=== PATIENT | female | born 1940 | race Caucasian/White ===

== ENCOUNTER 2017-08-20 07:31 | Emergency (ER) | payer MEDICARE ==
[2017-08-20 08:03] LABS: #Basophils 0.1 thou/uL (0.0-0.2); #Eosinphils 0.1 thou/uL (0.0-0.7); #Lymphocytes 2.3 thou/uL (1.20-3.40); #Monocytes 0.6 thou/uL (0.11-0.59); #Neutrophils 2.5 thou/uL (1.40-6.50); %Basophils 1.1 % (0.0-1.0); %Eosinophils 2.6 % (0.0-10.0); %Lymphocytes 41.1 % (21.0-51.0); %Monocytes 10.5 % (0.0-10.0); Hematocrit 37.3 % (36.0-47.0); Mean Platelet Volume 8.6 fL (7.4-10.4); Red Blood Cell (RBC) Count 4.03 mill/uL (4.20-5.40); White Blood Cell (WBC) Count 5.6 thou/uL (4.8-10.8)
--- NOTE | 2017-08-20 08:11 | RAD ---
CHEST ONE VIEW: History: Chest pain. Comparison: None. FINDINGS: Portable upright chest. Atherosclerosis of the aorta. Large cardiac silhouette. The pulmonary vessels and hilum are normal. C ostophrenic angles are clear. Lungs are hyperinflated. No mass, no consolidation. No pneumothorax or osseous abnormalities. IMPRESSION: 1. Atherosclerosis. 2. No acute cardiopulmonary process. POS: [facility]
[2017-08-20 08:29] LABS: ALT (SGPT) 15 U/L (8-55); AST (SGOT) 22 U/L (5-34); Alkaline Phosphatase 52 U/L (40-150); Anion Gap 12 mmol/L (10-20); BUN (Urea Nitrogen) 22 mg/dL (9.8-20.1); Bilirubin, Total 0.6 mg/dL (0.2-1.2); CK (CPK) 109 U/L (29-168); Calc. Creatinine Clearance 0 mL/min (70-130); Calcium 9.2 mg/dL (7.8-10.44); Carbon Dioxide 26 mmol/L (23-31); Chloride 105 mmol/L (98-107); Estimated GFR-MDRD 45; Globulin 2.9 g/dL (2.4-3.5); Lipase 47 U/L (8-78); Protein, Total 6.6 g/dL (6.0-8.3)
[2017-08-20] MEDS ORDERED: Ibuprofen 200 MG TAB ONE (09:24)
[2017-08-20 11:26] LABS: Troponin I 0.015 ng/mL (< 0.028)
== END 2017-08-20 12:12 | disposition home or self-care (01) ==
LOC: ERS 07:31
DX: R07.9 Chest pain, unspecified (principal); D64.9 Anemia, unspecified; E03.9 Hypothyroidism, unspecified; I48.91 Unspecified atrial fibrillation; M81.0 Age-related osteoporosis without current pathological fracture; N18.3 Chronic kidney disease, stage 3 (moderate); Z79.82 Long term (current) use of aspirin; Z79.899 Other long term (current) drug therapy
CPT/HCPCS: 36415; 71010; 80053; 82550; 82553; 83690; 83735; 84484; 85025; 93005; 94760

== ENCOUNTER 2017-11-07 09:38 | Inpatient (IN) | payer MEDICARE ==
[2017-11-07] MEDS ORDERED: HYDROcodone/Acetaminophen 5/325 mg Tablet ONE (10:07)
--- NOTE | 2017-11-07 10:28 | RAD ---
TWO VIEWS RIGHT HIP: Date: 11-07-17 Patient fell in shower. Pelvic pain. FINDINGS: There is a very minimally displaced fracture involving the most lateral aspect of the right superior pubic ramus. Definite additional fracture is not discernable on this exam. No fracture or dislocation is seen involving the right femur. Phleboliths overlie the pelvis. IMPRESSION: Fracture right superior pubic ramus. POS: [facility]
--- NOTE | 2017-11-07 11:02 | RAD ---
AP PELVIS: Date: 11/07/17 HISTORY: Fall. Pelvic pain. COMPARISON: None. FINDINGS: There is cortical incongruity of the right pubic root. Remainder of the hip appears to be unremarkabl e. SI joints are unremarkable. The femoral neck and its trochanteric region are unremarkable. IMPRESSION: Nondisplaced right pubic body fracture. POS: [facility]
[2017-11-07 12:39] LABS: #Basophils 0.1 thou/uL (0.0-0.2); #Eosinphils 0.1 thou/uL (0.0-0.7); #Lymphocytes 1.4 thou/uL (1.20-3.40); #Monocytes 0.8 thou/uL (0.11-0.59); #Neutrophils 8.3 thou/uL (1.40-6.50); %Basophils 0.5 % (0.0-1.0); %Eosinophils 0.7 % (0.0-10.0); %Lymphocytes 13.5 % (21.0-51.0); %Monocytes 7.4 % (0.0-10.0); %Neutrophils 77.9 % (42.0-75.0); Hemoglobin 11.6 g/dL (12.0-16.0); Mean Corpuscular HGB CONC 31.3 g/dL (32.0-36.0); Mean Corpuscular Hemoglobin 28.6 pg (27.0-31.0); Mean Corpuscular Volume 91.2 fl (81.0-99.0); Mean Platelet Volume 8.6 fL (7.4-10.4); Platelet Count 190 thou/uL (130-400); RBC Distribution Width 13.8 % (11.5-14.5); Red Blood Cell (RBC) Count 4.04 mill/uL (4.20-5.40); White Blood Cell (WBC) Count 10.7 thou/uL (4.8-10.8)
[2017-11-07 13:05] LABS: ALT (SGPT) 17 U/L (8-55); AST (SGOT) 27 U/L (5-34); Albumin 3.9 g/dL (3.4-4.8); Alkaline Phosphatase 58 U/L (40-150); Anion Gap 10 mmol/L (10-20); BUN (Urea Nitrogen) 25 mg/dL (9.8-20.1); Bilirubin, Total 0.7 mg/dL (0.2-1.2); Calc. Creatinine Clearance 0 mL/min (70-130); Calcium 9.4 mg/dL (7.8-10.44); Carbon Dioxide 24 mmol/L (23-31); Chloride 107 mmol/L (98-107); Estimated GFR-MDRD 52; Glucose 94 mg/dL (83-110); Potassium 3.8 mmol/L (3.5-5.1); Protein, Total 6.9 g/dL (6.0-8.3); Sodium 137 mmol/L (136-145)
[2017-11-07] MEDS ORDERED: Ondansetron HCl/PF 4 MG/2 ML Vial ONE (14:35)
--- NOTE | 2017-11-07 15:19 | RAD ---
LEFT HAND THREE VIEWS: History: Fall. Comparison: None. FINDINGS: There is widening of the scapholunate interval. There is severe degenerative disease at the thumb car pal metacarpal joint. Mild interphalangeal joint space narrowing. There is elongation of the ulnar styloid. Triangular fibrocartilage calcifications. IMPRESSION: Degenerative changes. No acute definite fracture is appreciated. POS: [facility]
[2017-11-07] MEDS ORDERED: Acetaminophen 500 MG TAB ONE ×2 (15:27→15:29)
[2017-11-07] MEDS ORDERED: Dextrose 5% in Water 1,000 ML IV PRN (17:32)
[2017-11-07] MEDS ORDERED: Dextrose 50% Abboject 50 ML SYRINGE SLOW IVP PRN (17:32)
[2017-11-07] MEDS ORDERED: traMADol HCl 50 MG TAB PO PRN (17:32)
[2017-11-07 17:47] VITALS: BMI 23.4
--- NOTE | 2017-11-07 18:26 | HP ---
DATE OF ADMISSION: 11/07/2017 REQUESTING PHYSICIAN: Dr. Ramy Woodard. ADMITTING PHYSICIAN: Dr. Ricky Mora. CONSULTING PHYSICIAN: Dr. Eduar Askew. CHIEF COMPLAINT: Hip fracture. HISTORY OF PRESENT ILLNESS: The patient is a 76-year-old female, who presents to the [place] ED v ia EMS after falling at home. She reports that she slipped getting out of the shower and did the "sp lits." Per EMS reports, the patient was able to ambulate after the fall, but complains of pain in he r lower back and buttocks that radiates to her front groin area. Upon my examination, the patient re ports her pain as 5/5. The patient also does report that she is on both aspirin and Eliquis. She de nies head injury. She denies loss of consciousness. She denies any dizziness, chest pain or shortne ss of breath. Evaluation in the ED showed that she had a nondisplaced right pubic rami fracture. Or thopedic Surgery was consulted and upon their evaluation, the fracture was determined to be nonoperat arash. Trauma Services was asked to admit for pain control while we await rehab approval. PAST MEDICAL HISTORY: The patient's past medical history is significant for hypertension; coronary a rtery disease; atrial fibrillation; chronic kidney disease, stage 3; dementia; overactive bladder; os teoporosis; and hypothyroidism. PAST SURGICAL HISTORY: The patient reports having breast cancer surgery in 2006. She also reports a remote history of a hysterectomy. SOCIAL HISTORY: The patient lives at [place]. She does not smoke, drink or do drugs. FAMILY HISTORY: Noncontributory for this case. ALLERGIES: The patient reports allergies to SULFA DRUGS, CODEINE, MACRODANTIN and AZATHIOPRINE. REVIEW OF SYSTEMS: A 10-point review of systems for this patient is negative except as mentioned in the HPI. PHYSICAL EXAMINATION: VITAL SIGNS: Blood pressure is 123/50, pulse 70, respirations 18, temperature 98.9, O2 sat 94% on ro om air. GENERAL: The patient is an elderly female, lying in bed, in no acute distress. HEENT: She is normocephalic and atraumatic. Eyes: Pupils are equal, round, and reactive to light a nd accommodation. Extraocular movements are intact. Ears: Her external auditory canals are atrauma tic. Nose: Nares are patent, free of discharge. Mouth: Her oropharynx is atraumatic. Her dentiti on is intact. NECK: Trachea is midline. She has no C-spine tenderness, no bruits. RESPIRATORY: Her lung sounds are clear to auscultation bilaterally with normal effort. CARDIOVASCULAR: She has a regular rate and rhythm. Normal S1 and S2. No murmurs, gallops or rubs. Her radial and dorsalis pedis pulses are 2+ bilaterally. ABDOMEN: Her abdomen is soft, obese, but nontender throughout. She has no masses. Her bowel sounds are normal. EXTREMITIES: She is neurovascularly intact x4. She moves all extremities appropriately. NEUROLOGIC: She is alert and oriented x3. Her GCS is 15. She has no focal deficits. LABORATORY DATA: Hematology: WBC is 10.7, hemoglobin 11.6, hematocrit 36.9, platelets 190. Executive Manager ry: Sodium 137, potassium 3.8, chloride 107, bicarbonate 24, BUN 25, creatinine 1.03, glucose 94. L iver function was normal. RADIOGRAPHIC FINDINGS: Right hip x-ray. Impression: Fracture, right superior pubic ramus. Left blancas nd, 3-view x-ray. Impression: Degenerative changes. No acute definite fracture is appreciated. Pe lvic x-ray. Impression: Nondisplaced right pubic body fracture. ASSESSMENT: 1. Status post ground level fall. 2. Acute traumatic pain. 3. Nondisplaced pubic rami fracture. 4. History of atrial fibrillation. 5. History of chronic kidney disease, stage 3. 6. History of coronary artery disease. 7. History of hypertension. PLAN: 1. The patient's fractures are assessed to be nonoperative per Orthopedic Surgery. The patient will need adequate pain control. She should be able to discharge to rehab, we just need to get approval for that. 2. We will encourage pulmonary toileting and gastritis prophylaxis while in house. 3. The patient will begin a regular diet since no indication for surgery. This patient was seen and examined along with Dr. Ricky Mora who agrees with this assessment and melvin buchanan
[2017-11-07] MEDS: traMADol HCl 50 MG TAB PO SCH (18:46)
[2017-11-08] MEDS: traMADol HCl 50 MG TAB PO SCH ×5 (00:01→23:14)
[2017-11-08 05:55] LABS: #Eosinphils 0.3 thou/uL (0.0-0.7); #Lymphocytes 1.1 thou/uL (1.20-3.40); #Monocytes 0.8 thou/uL (0.11-0.59); #Neutrophils 6.2 thou/uL (1.40-6.50); %Eosinophils 3.9 % (0.0-10.0); %Lymphocytes 13.5 % (21.0-51.0); %Monocytes 9.1 % (0.0-10.0); %Neutrophils 73.5 % (42.0-75.0); Hemoglobin 10.7 g/dL (12.0-16.0); Mean Corpuscular HGB CONC 32.3 g/dL (32.0-36.0); Mean Corpuscular Hemoglobin 28.7 pg (27.0-31.0); Mean Platelet Volume 8.6 fL (7.4-10.4); Platelet Count 166 thou/uL (130-400); RBC Distribution Width 13.6 % (11.5-14.5); Red Blood Cell (RBC) Count 3.71 mill/uL (4.20-5.40); White Blood Cell (WBC) Count 8.5 thou/uL (4.8-10.8)
[2017-11-08 06:06] LABS: Anion Gap 10 mmol/L (10-20); BUN (Urea Nitrogen) 23 mg/dL (9.8-20.1); Calc. Creatinine Clearance 56 mL/min (70-130); Calcium 8.8 mg/dL (7.8-10.44); Carbon Dioxide 24 mmol/L (23-31); Chloride 108 mmol/L (98-107); Estimated GFR-MDRD 60; Glucose 105 mg/dL (83-110); Sodium 138 mmol/L (136-145)
[2017-11-08] MEDS: Acetaminophen 500 MG TAB PO PRN ×3 (08:01→23:14)
[2017-11-08] MEDS ORDERED: Nitroglycerin 0.4 MG TAB (25 Tab Bottle) SL PRN (10:24)
[2017-11-08] MEDS ORDERED: Pepto Bismol Chew TAB PO PRN (10:24)
[2017-11-08] MEDS ORDERED: Simethicone Chewable 80 MG TAB PO PRN (13:00)
--- NOTE | 2017-11-08 14:42 | CON ---
DATE OF CONSULTATION: 11/08/2017 We were asked to see patient by the ER and Trauma. HISTORY OF PRESENT ILLNESS: The patient was in her shower yesterday when she slipped. She said she did the splits and had instantaneous pelvis pain. She landed on her backside and also has some pain and edema and ecchymosis to her left hand. Currently, patient is seated in a chair. She feels good, getting out of bed, but denies any pain down her lower extremities, is comfortable right now. PAST MEDICAL HISTORY: Hypertension, CAD, atrial fibrillation, kidney disease, dementia, overactive b ladder, osteoporosis, hypothyroidism. PAST SURGICAL HISTORY: Breast cancer, hysterectomy. SOCIAL HISTORY: Resides at [place]. No alcohol or nicotine products. ALLERGIES: SULFA, CODEINE, MACRODANTIN, AZATHIOPRINE. CURRENT MEDICATIONS: Tylenol with Codeine, calcium carbonate, ibuprofen, Eliquis, aspirin, Pepto-Bis mol, hydrochlorothiazide, pantoprazole, Toprol-XL, nitroglycerin, Benicar, Crestor, simethicone, Armo ur Thyroid. REVIEW OF SYSTEMS: Patient has some pelvis pain, some left hand pain. Denies any chest pain, shortn ess of breath. PHYSICAL EXAMINATION: GENERAL: Well-nourished female, alert, pleasant, in no acute distress. Speech clear. Affect pleasa nt. Answers questions appropriately, and she is very sweet and pleasant. HEENT: Normal exam. Face is symmetric. Tongue midline. NECK: Supple, trachea midline. EXTREMITIES: Upper extremities, left hand dorsally have some edema and a little bit tender to palpat ion, but she is able to make a fist. Hips and pelvis, pain with rocking, but she is able to tolerate it better, more so now that she is sitting up in a chair. Lower extremities: She is moving both of these well. Sensations are intact in all extremities. ASSESSMENT: 1. Pelvis right superior pubic ramus. 2. Contusion in the left hand. PLAN: No surgical intervention is needed. PT, OT was ordered. She will need to go back to a [facility] facility. The patient understands this. She will probably be with us over the weekend. If she blancas s any further problems, will be happy to see her; otherwise, we will see her back in 3-4 weeks for re check. This is Ino Hernandez PA-C dictating for Mayank Trinidad M.D.
[2017-11-08] MEDS: Ibuprofen 200 MG TAB PO PRN (16:32)
--- NOTE | 2017-11-08 17:43 | PRG ---
DATE OF SERVICE: 11/08/2017 ATTENDING PHYSICIAN: Ricky Mora DO SUBJECTIVE: The patient is a 76-year-old female who presented to the [place] ED via EMS yesterday after falling at home. She was evaluated and found to have a nondisplaced pubic ramus fracture. He r orthopedic injury was determined to be nonoperative after consultation with Orthopedic Surgery. Th e patient is a good candidate for rehabilitation; however, she was not able to be discharged straight to rehab from the ER. She was admitted to the surgical floor due to inadequate pain control. This morning on exam, she reports that her pain control is still inadequate. Other than that, she vocaliz ed no complaints. OBJECTIVE: VITAL SIGNS: BP 140/78, pulse 72, temperature 98.4, respirations 16, O2 sat 95% on room air. GENERAL: The patient is an elderly female in no acute distress. HEENT: Normocephalic and atraumatic. RESPIRATORY: Breath sounds are clear to auscultation bilaterally with normal effort. CARDIOVASCULAR: She has a regular rate and rhythm with a normal S1, S2. No murmurs, gallops or rubs . Her radial and dorsalis pedis pulses are 2+ bilaterally. ABDOMEN: Soft, obese, but nontender. Bowel sounds normal. EXTREMITIES: She is neurovascularly intact x4. NEUROLOGIC: She is alert and oriented x3. GCS is 15 this morning. She has no focal deficits. LABORATORY DATA: Hematology: WBC 8.5, hemoglobin 10.7, hematocrit 33.0, platelets 166. Chemistry: Sodium 138, potassium 4.0, chloride 108, bicarbonate 24, BUN 23, creatinine 0.91, glucose 105, calci um 8.8. RADIOGRAPHIC FINDINGS: There are no images to review today. ASSESSMENT: 1. Status post ground level fall. 2. Acute traumatic pain. 3. Nondisplaced pubic rami fracture. 4. History of atrial fibrillation. 5. History of chronic kidney disease stage 3. 6. History of coronary artery disease. 7. History of hypertension. PLAN: 1. We will continue to try to adjust the patient's medications in order to optimize pain control. T he patient will also be educated on pulmonary toileting and given gastritis prophylaxis. 2. Anticipate the patient will be able to discharge to rehabilitation once pain control has been opt imized. 3. Patient can continue a regular diet since no indication for surgery. This patient was seen and examined while Dr. Ricky Mora on rounds, who agrees with the assessment and plan.
[2017-11-08] MEDS: Apixaban 5 MG TAB PO SCH (20:50)
[2017-11-08] MEDS: Calcium Carbonate 500 MG ChewTAB PO SCH (20:50)
[2017-11-08] MEDS: Rosuvastatin 20 MG TAB PO SCH (20:50)
[2017-11-08] MEDS: diphenhydrAMINE 25 MG CAP PO PRN (23:14)
[2017-11-09] MEDS: Ibuprofen 200 MG TAB PO PRN (03:31)
[2017-11-09] MEDS: Acetaminophen 500 MG TAB PO PRN (05:59)
[2017-11-09] MEDS: traMADol HCl 50 MG TAB PO SCH ×4 (05:59→23:40)
[2017-11-09] MEDS: Aspirin 81 mg Enteric Coated Tablet PO SCH (10:28)
[2017-11-09] MEDS: Apixaban 5 MG TAB PO SCH ×2 (10:28→20:25)
[2017-11-09] MEDS: Hydrochlorothiazide 25 MG TAB PO SCH (10:29)
[2017-11-09] MEDS: Senokot S 8.6-50 MG TAB PO SCH ×2 (10:29→20:25)
[2017-11-09] MEDS: Calcium Carbonate 500 MG ChewTAB PO SCH ×2 (10:30→20:24)
--- NOTE | 2017-11-09 12:17 | PRG ---
DATE OF SERVICE: 11/09/2017 ATTENDING PHYSICIAN: Dr. Morfin SUBJECTIVE: The patient is a 76-year-old female who presented to the [place] ED via EMS on 2017 after suffering a ground level fall at home. She was evaluated and found to have a nondisplaced pubic ramus fracture. This was determined to be nonoperative after consultation with Orthopedic Nanette mariscal. The patient is a good candidate for rehabilitation; however, due to her [employer] insurance situation, she was not able to be transferred directly to rehab from the ER. She also has had proble ms with pain control which are ongoing. This morning on exam, she reports that her pain is adequate when she is resting, but still uncontroll ed when she tries to mobilize with PT and OT. The pain thus far has been preventing her from doing h er scheduled PT and OT activities. OBJECTIVE: VITAL SIGNS: BP 167/84, pulse 71, temperature 98.5, respirations 16, O2 sat 94% on room air. GENERAL APPEARANCE: The patient is an elderly adult female in no apparent distress. HEENT: Normocephalic, atraumatic. RESPIRATORY: Her breath sounds are clear to auscultation bilaterally with normal effort. CARDIOVASCULAR: She has a regular rate and rhythm with normal S1 and S2. No murmurs, gallops or rub s. ABDOMEN: Soft, obese, but nontender, nondistended. Her bowel sounds are normal. EXTREMITIES: She is neurovascularly intact x4. Her distal pulses are 2+ bilaterally. NEUROLOGIC: She is alert and oriented x3 this morning. Her GCS is 15. She has no focal deficits. LABORATORY DATA: There are no labs to review today. IMAGING: There are no images to review today. ASSESSMENT: 1. Status post ground level fall. 2. Acute traumatic pain. 3. Nondisplaced pubic rami fracture. 4. History of atrial fibrillation, present on admission. 5. History of chronic kidney disease stage 3, present on admission. 6. History of coronary artery disease, present on admission. 7. History of hypertension, present on admission. PLAN: 1. We will schedule the patient to receive her p.r.n. tramadol 30 minutes before work with PT and OT . Hopefully, this will help getting her up and out of bed more. 2. Patient also recounseled on pulmonary toileting and reeducated on how to use her incentive spirom eter. 3. The patient continues to tolerate a regular diet. The patient was discussed over the phone with Dr. Ricky Mora who agrees with the assessment and pl an.
[2017-11-09] MEDS: traMADol HCl 50 MG TAB PO PRN (17:18)
[2017-11-09] MEDS: Rosuvastatin 20 MG TAB PO SCH (20:25)
[2017-11-09] MEDS: diphenhydrAMINE 25 MG CAP PO PRN (20:25)
[2017-11-10] MEDS: Ibuprofen 200 MG TAB PO PRN ×2 (04:18→20:37)
[2017-11-10] MEDS: traMADol HCl 50 MG TAB PO SCH ×4 (05:28→23:49)
[2017-11-10] MEDS: Apixaban 5 MG TAB PO SCH ×2 (08:21→20:37)
[2017-11-10] MEDS: Aspirin 81 mg Enteric Coated Tablet PO SCH (08:21)
[2017-11-10] MEDS: Calcium Carbonate 500 MG ChewTAB PO SCH ×2 (08:21→20:38)
[2017-11-10] MEDS: Senokot S 8.6-50 MG TAB PO SCH ×2 (08:22→20:41)
[2017-11-10] MEDS: traMADol HCl 50 MG TAB PO PRN (08:23)
[2017-11-10] MEDS: Polyethylene Glycol 3350 17 GM Packet PO SCH (08:23)
[2017-11-10 13:43] LABS: Bilirubin Negative (Negative); Blood, Urine Trace (Negative); Clarity CLOUDY (Clear); Glucose, Urine (Dipstick) Negative (Negative); Leukocyte Moderate (Negative); Nitrite Positive (Negative); Protein, Urine (Dipstick) 100 mg/dL (Neg-Trace); Specific Gravity, Urine 1.021 (1.002-1.036)
[2017-11-10 13:45] LABS: Bacteria/HPF 4+ HPF (None Seen); Hyaline Casts/LPF 0-3 HYALINE CAST LPF (0-3 Hyaline); RBC/HPF 0-3 HPF (0-3); Squamous Epithelial None Seen HPF (0-3)
--- NOTE | 2017-11-10 18:15 | PRG ---
DATE OF SERVICE: 11/10/2017 ATTENDING PHYSICIAN: Dr. Alexander Morfin. SUBJECTIVE: The patient is a 76-year-old female who presented to the [place] ED via EMS after suf fering a ground level fall. She was evaluated and found to have a nondisplaced pubic rami fracture w hich was determined to be nonoperative. The patient has had problems with pain control; however, thi s morning she reports that her pain control is much better after adjusting yesterday. OBJECTIVE: VITAL SIGNS: BP 144/78, pulse 75, temperature 98.3, respirations 12, O2 sat 95% on room air. GENERAL APPEARANCE: The patient is an elderly adult female in no apparent distress. HEENT: She is normocephalic, atraumatic. RESPIRATORY: Breath sounds are clear to auscultation bilaterally with normal effort. CARDIOVASCULAR: She has a regular rate and rhythm with normal S1 and S2. No murmurs, gallops or rub s. ABDOMEN: Soft, obese, but nontender, nondistended. She has normal bowel sounds. EXTREMITIES: She is neurovascularly intact x4. Distal pulses 2+ bilaterally. NEUROLOGIC: She is alert and oriented x3. This morning she has a GCS of 15 and no focal deficits. LABORATORY DATA: There are no labs to review today. IMAGING: There are no images to review today. ASSESSMENT: 1. Status post ground level fall. 2. Acute traumatic pain. 3. Nondisplaced pubic rami fracture. 4. History of atrial fibrillation, present on admission. 5. History of chronic kidney disease stage 3, present on admission. 6. History of coronary artery disease, present on admission. 7. History of hypertension, present on admission. PLAN: 1. Continue pain control as currently ordered. 2. Continue pulmonary toileting. 3. Patient will likely discharge to a correction facility or rehab early next week. This patient was discussed over the phone with Dr. Ricky Mora who agrees with the assessment and p funmi.
[2017-11-10] MEDS: Cipro 250 MG TAB PO SCH (20:38)
[2017-11-10] MEDS: Rosuvastatin 20 MG TAB PO SCH (20:38)
[2017-11-11] MEDS: Ibuprofen 200 MG TAB PO PRN (04:16)
[2017-11-11] MEDS: traMADol HCl 50 MG TAB PO SCH ×2 (06:27→11:50)
[2017-11-11] MEDS: Cipro 250 MG TAB PO SCH (06:29)
[2017-11-11] MEDS: Aspirin 81 mg Enteric Coated Tablet PO SCH (08:42)
[2017-11-11] MEDS: traMADol HCl 50 MG TAB PO PRN ×2 (08:42→14:42)
[2017-11-11] MEDS: Calcium Carbonate 500 MG ChewTAB PO SCH (08:42)
[2017-11-11] MEDS: Apixaban 5 MG TAB PO SCH (08:43)
[2017-11-11] MEDS: Hydrochlorothiazide 25 MG TAB PO SCH (08:43)
[2017-11-11] MEDS: Polyethylene Glycol 3350 17 GM Packet PO SCH (08:47)
[2017-11-11] MEDS: Senokot S 8.6-50 MG TAB PO SCH (08:47)
[2017-11-11 14:27] VITALS: BP 156/70; TEMP 97.9
--- NOTE | 2017-11-11 23:52 | DIS ---
DATE OF ADMISSION: 11/07/2017 DATE OF DISCHARGE: 11/11/2017 ADMITTING PHYSICIAN: Dr. Ricky Mora. DISCHARGING PHYSICIAN: Dr. Ricky Mora. PROCEDURES PERFORMED: None. ADMISSION DIAGNOSIS: Nondisplaced pubic rami fracture. DISCHARGE DIAGNOSIS: Nondisplaced pubic rami fracture. HISTORY OF PRESENT ILLNESS: The patient is a 76-year-old female who presented to the [place] ED v ia EMS after falling at home. She was evaluated and found to have a nondisplaced right pubic rami fr acture. Orthopedic surgery was consulted and upon their evaluation, the fracture was determined to b e nonoperative. Trauma services admitted the patient for pain control. While in the hospital, the p atient was discovered to have a urinary tract infection. She was started on ciprofloxacin 250 mg b.i .d. Case management was consulted and the patient was discharged in stable condition to a skilled [facility] facility on 11/11/2017. DISCHARGE MEDICATIONS: The patient was discharged with a new prescription for ciprofloxacin 250 mg t ablets with instructions to take one tablet p.o. b.i.d. x5 days. Patient also given a prescription f or tramadol 50 mg tablets, instructions to take 1-2 tablets every 6 hours as needed for pain. Other medications include acetaminophen and ibuprofen. The patient was restarted on all of her home medica tions except Tylenol No.3. This was withheld and she was given a prescription for tramadol. ACTIVITY INSTRUCTIONS: The patient was discharged with orthopedic instructions including weightbeari ng as tolerated. NOURISHMENT INSTRUCTIONS: The patient was discharged with a regular diet. THERAPY INSTRUCTIONS: Occupational and physical therapy in custodial facility. FOLLOWUP INSTRUCTIONS: The patient is instructed to follow up with her primary care provider, Dr. Fior Villagran in 7 days. The patient also instructed to follow up with Dr. Mayank Trinidad in 3-4 weeks. The patient does not have a formal followup with Dr. Mora, however, he remains available fo r questions or concerns as they arise. This patient was seen and examined on rounds with Dr. Ricky Mora who agrees with this discharge pl an.
== END 2017-11-11 15:15 | DRG 536 ==
LOC: ERS 09:38 → SURG A 15:18 → OBSVTOIN 17:32
PROVIDERS: ADMIT Surgery; ATTEND Surgery
DX: S32.511A Fracture of superior rim of right pubis, initial encounter for closed fracture (principal); I48.2 Chronic atrial fibrillation; F03.90 Unspecified dementia, unspecified severity, without behavioral disturbance, psychotic disturbance, mood disturbance, and anxiety; N39.0 Urinary tract infection, site not specified; N18.3 Chronic kidney disease, stage 3 (moderate); I25.10 Atherosclerotic heart disease of native coronary artery without angina pectoris; W18.2XXA Fall in (into) shower or empty bathtub, initial encounter; Y93.E1 Activity, personal bathing and showering; Y92.012 Bathroom of single-family (private) house as the place of occurrence of the external cause; I12.9 Hypertensive chronic kidney disease with stage 1 through stage 4 chronic kidney disease, or unspecified chronic kidney disease; N32.81 Overactive bladder; M81.0 Age-related osteoporosis without current pathological fracture; E03.9 Hypothyroidism, unspecified; Z85.3 Personal history of malignant neoplasm of breast; Z88.5 Allergy status to narcotic agent; Z88.2 Allergy status to sulfonamides; Z88.8 Allergy status to other drugs, medicaments and biological substances; G89.11 Acute pain due to trauma; S60.222A Contusion of left hand, initial encounter
CPT/HCPCS: 36415; 72170; 80048; 80053; 81001; 85025; 87077; 87086; 87186; 93005; 96374; 96375; G8978-GP-CM; G8979-GP-CI; G8987-GO-CK; G8988-GO-CI; J2270; J2405

== ENCOUNTER 2017-11-15 08:26 | Emergency (ER) | payer MEDICARE ==
[2017-11-15 09:17] LABS: #Eosinphils 0.1 thou/uL (0.0-0.7); #Lymphocytes 1.3 thou/uL (1.20-3.40); #Monocytes 0.9 thou/uL (0.11-0.59); #Neutrophils 6.6 thou/uL (1.40-6.50); %Basophils 0.4 % (0.0-1.0); %Eosinophils 1.4 % (0.0-10.0); %Lymphocytes 14.9 % (21.0-51.0); %Monocytes 9.6 % (0.0-10.0); %Neutrophils 73.6 % (42.0-75.0); Hemoglobin 10.4 g/dL (12.0-16.0); Mean Corpuscular HGB CONC 33.5 g/dL (32.0-36.0); Mean Corpuscular Hemoglobin 29.5 pg (27.0-31.0); Mean Corpuscular Volume 88.2 fl (81.0-99.0); Mean Platelet Volume 7.9 fL (7.4-10.4); Platelet Count 195 thou/uL (130-400); RBC Distribution Width 14.6 % (11.5-14.5); Red Blood Cell (RBC) Count 3.54 mill/uL (4.20-5.40); White Blood Cell (WBC) Count 8.9 thou/uL (4.8-10.8)
[2017-11-15 09:43] LABS: CKMB 4.8 ng/mL (0-6.6); Troponin I 0.019 ng/mL (< 0.028)
[2017-11-15 09:44] LABS: ALT (SGPT) 18 U/L (8-55); AST (SGOT) 33 U/L (5-34); Albumin 3.5 g/dL (3.4-4.8); Alkaline Phosphatase 70 U/L (40-150); Anion Gap 15 mmol/L (10-20); BUN (Urea Nitrogen) 18 mg/dL (9.8-20.1); CK (CPK) 344 U/L (29-168); Calc. Creatinine Clearance 0 mL/min (70-130); Calcium 9.1 mg/dL (7.8-10.44); Carbon Dioxide 25 mmol/L (23-31); Chloride 91 mmol/L (98-107); Estimated GFR-MDRD 63; Globulin 3.1 g/dL (2.4-3.5); Glucose 96 mg/dL (83-110); Protein, Total 6.6 g/dL (6.0-8.3); Sodium 128 mmol/L (136-145)
[2017-11-15] MEDS ORDERED: Morphine 4 MG/ML VIAL ONE (10:47)
[2017-11-15] MEDS ORDERED: Ondansetron HCl/PF 4 MG/2 ML Vial ONE (10:47)
--- NOTE | 2017-11-15 10:55 | CT ---
CT ABDOMEN AND PELVIS WITH CONTRAST: Date: 11/15/17 HISTORY: Trauma. COMPARISON: None. FINDINGS: Lung bases are clear. No pericardial effusion. Prior cholecystectomy. [place] effect of intra and extrahepatic biliary system. Right pubic root fracture, as well as right inferior pubic ramus fracture in two separate areas, dick ng this a segmental fracture. There are also fractures of the right sacrum, S1-S3. The sacral fractur es are through zone 1. Femoral head and neck are intact. There is a contusion/hematoma of obturator internis and piriformis muscle on the right. There is trace perisplenic fluid. Pancreas is unremarkable. No renal laceration. Mild dilatation of t he right renal pelvis. Aortoiliac contour is nonaneurysmal. Urinary bladder is unremarkable. Iliopsoas muscles are without injury. IMPRESSION: 1. Right pubic root fracture extending to the anterior wall of acetabulum, as well as segmental frac ture right inferior pubic ramus. 2. Right sacral fracture through zone 1, S1-S3. 3. Hematoma within right obturator internis and piriformis muscles, likely from pelvic trauma. 4. Trace fluid around the spleen without definite laceration. 5. The visualized left-sided ribs are without fracture. POS: [facility]
== END 2017-11-15 11:31 | disposition home or self-care (01) ==
LOC: ERS 08:26
DX: S32.119A Unspecified Zone I fracture of sacrum, initial encounter for closed fracture (principal); S32.411A Displaced fracture of anterior wall of right acetabulum, initial encounter for closed fracture; I48.91 Unspecified atrial fibrillation; E03.9 Hypothyroidism, unspecified; I12.9 Hypertensive chronic kidney disease with stage 1 through stage 4 chronic kidney disease, or unspecified chronic kidney disease; N18.3 Chronic kidney disease, stage 3 (moderate); Z79.82 Long term (current) use of aspirin; Z79.899 Other long term (current) drug therapy; W19.XXXA Unspecified fall, initial encounter
CPT/HCPCS: 36415; 74177; 80053; 82550; 82553; 84484; 85025; 93005; 96374; 96375; J2270; J2405

== ENCOUNTER 2019-10-24 10:51 | Inpatient (IN) | payer MEDICARE ==
--- NOTE | 2019-10-24 11:33 | RAD ---
EXAM: Single view of the chest HISTORY: Altered mental status COMPARISON: 08/20/2017 FINDINGS: Single view of the chest shows a normal sized cardiomediastinal silhouette. A right IJ kodi lysis catheter seen with its tip in the superior vena cava. There may be small bilateral pleural effusions. The bones are unremarkable. IMPRESSION: Small bilateral pleural effusions
--- NOTE | 2019-10-24 11:33 | CT ---
EXAM: CT brain without contrast HISTORY: Headache and altered mental status COMPARISON: None TECHNIQUE: Multiple contiguous axial images were obtained and a CT of the brain without contrast. FINDINGS: There is a 4.0 cm area of parenchymal hemorrhage in the left parietal lobe. There is also a small amount of adjacent subarachnoid hemorrhage. There are scattered hypodensities in the subcortical and periventricular white matter, likely secondary to small vessel ischemic disease. Ther e is no evidence of hydrocephalus. The calvarium and overlying soft tissues are unremarkable. The visualized paranasal sinuses and masto id air cells are well aerated. IMPRESSION: Spontaneous parenchymal hemorrhage. An underlying mass lesion is a possibility. An MRI of the brain without and with contrast is recommended for further evaluation. This exam was reviewed with Dr. Tubbs who agrees with the findings and impression.
[2019-10-24] MEDS ORDERED: Iopamidol-370 76% 500 ML 1 ML ONE (11:47)
[2019-10-24] MEDS ORDERED: Human Prothrombin Complx(PCC) 1,500 UNIT in Admixture Fee 60 EACH IV SCH (12:15)
[2019-10-24 12:47] LABS: #Eosinphils 0.1 thou/uL (0.0-0.7); #Lymphocytes 2.2 thou/uL (1.20-3.40); #Monocytes 0.6 thou/uL (0.11-0.59); #Neutrophils 4.1 thou/uL (1.40-6.50); %Basophils 0.6 % (0.0-1.0); %Eosinophils 1.9 % (0.0-10.0); %Lymphocytes 31.3 % (21.0-51.0); %Monocytes 8.8 % (0.0-10.0); %Neutrophils 57.4 % (42.0-75.0); Mean Corpuscular HGB CONC 32.8 g/dL (32.0-36.0); Mean Corpuscular Hemoglobin 29.1 pg (27.0-31.0); Mean Corpuscular Volume 88.7 fL (78.0-98.0); Platelet Count 228 thou/uL (130-400); Red Blood Cell (RBC) Count 4.14 mill/uL (4.20-5.40); White Blood Cell (WBC) Count 7.1 thou/uL (4.8-10.8)
[2019-10-24 12:59] LABS: Bilirubin Negative (Negative); Blood, Urine 1+ (Negative); Clarity Turbid (Clear); Glucose, Urine (Dipstick) Normal (Negative); Leukocyte 500 Leu/uL (Negative); Nitrite 2+ (Negative); Protein, Urine (Dipstick) 50 mg/dL (Neg-Trace); Squamous Epithelial 0-3 HPF (0-3); Urobilinogen Normal mg/dL (Less than 2); WBC/HPF Greater than 50 HPF (0-3)
--- NOTE | 2019-10-24 12:59 | RAD ---
EXAM: Single view of the chest HISTORY: Altered mental status and headache COMPARISON: 08/20/2017 FINDINGS: Single view of the chest shows a normal sized cardiomediastinal silhouette. There is no monika dence of consolidation, mass, or pleural effusion. The bones are unremarkable. IMPRESSION: No evidence of acute cardiopulmonary disease
[2019-10-24 13:00] LABS: Bacteria/HPF 1+ HPF (None Seen)
[2019-10-24 13:18] LABS: ALT (SGPT) 16 U/L (8-55); AST (SGOT) 24 U/L (5-34); Albumin 4.2 g/dL (3.4-4.8); Alkaline Phosphatase 62 U/L (40-110); Anion Gap 15 mmol/L (10-20); BUN (Urea Nitrogen) 17 mg/dL (9.8-20.1); Bilirubin, Total 0.9 mg/dL (0.2-1.2); Calc. Creatinine Clearance 0 mL/min (70-130); Calcium 9.4 mg/dL (7.8-10.44); Carbon Dioxide 24 mmol/L (23-31); Chloride 108 mmol/L (98-107); Estimated GFR-MDRD 54; Glucose 86 mg/dL (83-110); Lipase 51 U/L (8-78); Potassium 4.4 mmol/L (3.5-5.1); Protein, Total 7.2 g/dL (6.0-8.3); Sodium 143 mmol/L (136-145)
--- NOTE | 2019-10-24 13:29 | CT ---
CT ANGIOGRAM HEAD: 10/24/2019 HISTORY: Evaluate for a cause of intraaxial hemorrhage noted near the vertex posteriorly on the left on recent head CT. TECHNIQUE: Axial CT imaging at 1.25 mm intervals from the vertex through the lung apices with IV contrast using CT angiogram protocol. Coronal and sagittal 3D reformatted imaging obtained. FINDINGS: The imaged lung apices appear unremarkable. The origin of the innominate artery, the right subclavian artery, the right common carotid artery, th e left common carotid artery and the left subclavian artery appear unremarkable. The origin of the bi lateral vertebral arteries appears unremarkable. The vertebral artery proximally is tortuous bilatera lly. Bilateral vertebral arteries are otherwise unremarkable. The proximal aspect of the left common carotid artery is tortuous. There is mild atherosclerotic calc ification at the origin of the left internal carotid artery. The left ICA is tortuous. On the basis o f NASCET criteria, no hemodynamically significant stenosis is noted involving the common carotid or i nternal carotid artery on either side. There is proximal right CCA tortuosity. There is mild atherosc lerotic calcification of the distal right CCA. Retroantral fat and parapharyngeal fat clear bilaterally. Parotid and submandibular glands are unrema rkable. Limited assessment of the aerodigestive tract appears unremarkable. No lymphadenopathy is maryam reciated within the neck. The basilar artery and its branches appear patent. No saccular aneurysm, high grade stenosis or vascu lar occlusion is seen within the posterior circulation. The extracranial ICA is patent bilaterally. The M1 segment and the MCA bifurcation appear unremarkabl e bilaterally. The distal MCA and ROMY branches appear intact. The A1 segment on the left is hypoplast ic. Anterior circulation demonstrates no high-grade stenosis, vascular occlusion or saccular aneurysm . An intra-axial hematoma is noted posteriorly in the left parietal region, abutting the atrium of the left lateral ventricle, measuring approximately 4-5 cm in AP dimension and 4.6 cm in craniocaudal dim ension. There is no evidence for an arteriovenous malformation in this region. Along the superior-pos terior margin of the intraaxial hemorrhage on the left there is a nonspecific, mildly serpiginous, pr ominent vascular structure, best seen on coronal image 83, measuring 2-3 mm, of uncertain etiology. T his could represent a dilated cortical vein or tumor vessel. The dural venous sinuses appear patent in the region of the superior sagittal sinus and torcula. The transverse sinus and sigmoid sinus as well as the internal jugular vein on the right are patent. 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 No worrisome lytic or blastic bone lesion. Severe cervical spine degenerative change is present. IMPRESSION: 1. Arterial structures of the neck appear unremarkable. 2. Intraaxial hemorrhage on the left with no associated arteriovenous malformation. Recommend brain M RI with and without contrast to evaluate for an underlying lesion which has bled. POS: [facility]
[2019-10-24] MEDS ORDERED: [UNRECOGNIZED DRUG - REMARK] FS SCH (13:45)
[2019-10-24] MEDS: Acetaminophen 325 MG TAB PO PRN ×2 (18:48→23:35)
[2019-10-24] MEDS: niCARdipine 25 MG in Sodium Chloride 0.9% 250 ML 240 ML IVPB SCH (18:49)
[2019-10-24] MEDS: diphenhydrAMINE 25 MG CAP PO PRN (18:49)
--- NOTE | 2019-10-24 19:22 | HP ---
CHIEF COMPLAINT: Headaches and vision changes. HISTORY OF PRESENT ILLNESS: Ms. Marte is a pleasant 78-year-old female, who presented to the emergency department today from an [facility] for evaluation of headaches and vision changes. Given the patient has dementia, she was unable to tell me how long her symptoms have been present. The patient denies any headaches or pain at present. She reports blurred vision. She also reports that she has urinary frequency. Otherwise, she denies associated dizziness, nausea/vomiting, or gait imbalance. She states that she has been ambulating without difficulty and denies weakness in her arms or legs. The patient presented with elevated blood pressure, with systolic in the 170s. A Cardene drip was started in the ED. CT of the brain was completed, which revealed findings of left occipital lobe intraparenchymal hemorrhage. Based on the appearance with surrounding edema, study is consistent with subacute hemorrhage that has likely been present over the last couple of days. PERTINENT HISTORY: Atrial fibrillation, for which the patient is on Eliquis. History of dementia, lives at an Alzheimer's Facility locally. Recent UTI. PHYSICAL EXAMINATION: The patient is awake, alert, and responding appropriately. No acute distress. She is oriented to self and partially to place, stating that she knows she is in a medical facility, but she is not sure what town she is in. The patient is not oriented to time. She has visual neglect on the right. She has decreased visual acuity and is unable to correctly identify the number of fingers I hold up. Extraocular movements are intact. Pupils are 3-4 mm bilaterally. Pupils are equal, round, and reactive to light. Given the patient's decreased visual acuity, she was unable to identify the pin that I held up in front of her or its purpose. No tongue fasciculations. No pronator drift. 5/5 strength throughout her upper and lower extremities bilaterally. Sensation to light touch in her extremities is intact and equal bilaterally. She has a full range of motion and good movement of her arms and legs. Gait was not assessed. Burnett catheter in place. IMPRESSION/DIAGNOSES: 1. Left occipital intraparenchymal hemorrhage. 2. Hypertension. 3. Vision changes. 4. Dementia. 5. Urinary tract infection. PLAN: At this time, I have discussed this case and reviewed imaging with Dr. Fairchild. As mentioned above, CT of the brain reveals a large left occipital intraparenchymal hemorrhage with surrounding edema, that is likely consistent with a subacute bleed. A CTA of the brain has been ordered to further assess for vascular abnormalities. We will review this. An MRI of the brain with and without contrast has been ordered for tomorrow morning. The patient is on Eliquis for atrial fibrillation, and Kcentra was initiated for reversal in the emergency department. She was started on a Cardene drip. Blood pressure parameters will be systolic blood pressure less than 140 and diastolic blood pressure less than 90. I have added on p.r.n. hydralazine in attempt to manage blood pressure; however, I request that our medical colleagues further assist in medical management and blood pressure control. It also appears that the patient has a urinary tract infection and will require treatment with antibiotics. The patient will be admitted to the critical care unit for close neurologic monitoring with q.1 hour neuro checks. Head of bed 30 degrees. N.p.o. at midnight. No emergent neurosurgical intervention is indicated at this time. We will re-evaluate the patient in the morning. Call sooner for any neurologic changes or other concerns. This was a 50-minute initial visit, in which greater than 50% of the time was spent in review of records, imaging, evaluation, examination of the patient, and formulation of a plan. The remaining time was spent in counseling and coordination of care. Job ID: [id number] MTDD
--- NOTE | 2019-10-24 21:37 | PDOC.FMACP ---
Advance Care Planning - Note Participants: family Summary: Advanced Care Planning was discussed. The diagnosis, prognosis and goals of care were discussed. Appropriate forms and documentation to accomplish the goals of care were discussed. All questions were answered. The Palliative Care Team will be engaged to assist with completion of any outstanding forms that are needed. 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 She states that her mother had advanced dementia and survived an additional 5 years without medications and would not want any life prolonging measures for her mother given her dementia
[2019-10-24] MEDS ORDERED: Pepto Bismol Chew TAB PO PRN (22:11)
[2019-10-24] MEDS ORDERED: Calcium Carbonate 500 MG ChewTAB PO PRN (22:11)
[2019-10-24] MEDS: traMADol HCl 50 MG TAB PO PRN (22:58)
[2019-10-24] MEDS: cefTRIAXone\\ROCEPHIN 1 GM in Sodium Chloride 0.9% 100 ML IVPB SCH (22:59)
--- NOTE | 2019-10-24 23:32 | CON ---
DATE OF CONSULTATION: 10/24/2019 REASON FOR CONSULTATION: Medical management, hypertension, and UTI. BRIEF HISTORY OF PRESENT ILLNESS: This is a 78-year-old female with a past medical history of Alzheimer disease, who was sent from her residential due to headaches and vision loss. According to family members, the patient has had poor peripheral vision at baseline; however, her vision appeared to acutely get worse and she was unable to make out the face of her daughter from the distance when she was standing in front of her. She also had complained of nonspecific headache in the frontal area. The patient denied any numbness or weakness of her arms or legs. When the patient presented to the emergency room, she had a blood pressure of 168/91 and a temperature of 99.5. She underwent a chest x-ray, which showed no acute disease and a CT scan of her brain, which showed spontaneous parenchymal hemorrhage, 4 cm in the left parietal lobe. The patient was started on a nicardipine drip and admitted to the ICU under the Neurosurgical Service. Upon further workup, the patient was also noted to have a turbid urine with greater than 50 white cells concerning for a UTI. Hospitalist was consulted for medical management, UTI, and blood pressure control. Per daughter, the patient has been complaining of frequent urgency to go to the bathroom as well as persistent bladder spasms. The patient does have a history of hypertension and according to family member, she takes all her medications. Family members are confused as to how she got this hemorrhage, when she was compliant with her medications. The patient does have a history of atrial fibrillation, for which she is on Eliquis. PAST MEDICAL HISTORY: Atrial fibrillation; hypothyroidism; hypertension; osteoarthritis; CKD, stage 3; and Alzheimer's. SURGICAL HISTORY: Cholecystectomy and hysterectomy. SOCIAL HISTORY: The patient lives at [facility]. She denies any alcohol or drug use. FAMILY HISTORY: Significant for dementia. ALLERGIES: THE PATIENT IS ALLERGIC TO SULFA, CODEINE, AZATHIOPRINE, AND MACRODANTIN. CURRENT MEDICATIONS: 1. Nicardipine drip. 2. Hydralazine 10 mg IV q.15 minutes p.r.n. 3. Tylenol 650 mg p.o. q.6 hours p.r.n. 4. Benadryl 25 mg p.o. q.4 hours p.r.n. 5. Tramadol 50 mg p.o. q.4 hours p.r.n. PHYSICAL EXAMINATION: VITAL SIGNS: Temperature 98.4, blood pressure 139/62, heart rate 82, respiratory rate 22, and O2 saturation 94% on room air. GENERAL: The patient is alert and oriented to name and place. The patient states that it is September 21, 2012. She is unable to state who the president is, but says she knows who he is. CVS: Regular rate and rhythm with no murmurs, rubs, or gallops. LUNGS: Clear to auscultation bilaterally. ABDOMEN: Positive bowel sounds, soft, nontender, nondistended. EXTREMITIES: No edema. NEURO: Pupils are reactive to light, however, more sluggish on the right compared to the left. The patient is unable to state how many fingers are being held up in both of her eyes peripherally and centrally. The patient has 5/5 strength in her upper and lower extremities. She has intact sensation in all 4 extremities. Reflexes are 2+ and symmetric. The patient also seems to have right-sided neglect. PERTINENT LABORATORY DATA: CBC: White cell count 7.1, hemoglobin 12.0, hematocrit 36.7, and platelet count 228. BMP, 10/24: Sodium 143, potassium 4.4, chloride 108, carbon dioxide 24, BUN 17 , and creatinine 0.99. LFTs: AST 24, ALT 16, and alkaline phosphatase 62. Troponin I: 0.024. UA, 10/24: Shows turbid urine with 1+ blood, 2+ nitrites, 50 protein, 500 leukocyte esterase, greater than 50 white blood cells. PERTINENT IMAGING: Chest x-ray, 10/24: No acute disease. CT brain, 10/24: Spontaneous parenchymal hemorrhage. An underlying mass lesion is a possibility. MRI of the brain with and without contrast is recommended. Chest x-ray, 10/24: Small bilateral pleural effusions. CTA, 10/24: Shows intra-axial hemorrhage on the left. ASSESSMENT AND PLAN: This is a 78-year-old female with a past medical history of Alzheimer disease, who was sent to the emergency room for evaluation of headache and blurred vision. The patient was found to have left occipital intraparenchymal hemorrhage and is admitted to the [facility]. 1. Hypertensive emergency with intraparenchymal hemorrhage: We will continue with nicardipine drip to maintain a blood pressure of less than 140. We will start the patient on amlodipine 5 mg p.o. daily in the a.m. and hopefully titrate drip accordingly. The patient is on hydrochlorothiazide and olmesartan at home. We will hold for now and resume blood pressure medications slowly. The patient will also need an MRI of the brain with and without contrast to further evaluate hemorrhage versus mass noted on CT scan. 2. Acute encephalopathy, possibly secondary to urinary tract infection: We will start the patient on IV ceftriaxone. We will send a urine culture. We will try to avoid giving sedatives since this can aggravate delirium, but if needed, we will consider Seroquel 12.5 mg p.o. b.i.d. p.r.n. 3. Hypothyroidism: We will continue patient's outpatient thyroid medicine. 4. Hyperlipidemia: Continue rosuvastatin 20 mg p.o. at bedtime. 5. Gastroesophageal reflux disease: Continue PPI. 6. Atrial fibrillation: We will hold apixaban and aspirin. . Code status: The patient's daughter requested that the patient be a DNR/DNI. . Diet: Per Neurosurgery, the patient will be n.p.o. for now in case of surgical intervention; however, no surgical intervention is needed at this time. Job ID: [id number] MTDD
[2019-10-25] MEDS: traMADol HCl 50 MG TAB PO PRN (05:12)
[2019-10-25] MEDS: diphenhydrAMINE 25 MG CAP PO PRN (05:12)
[2019-10-25] MEDS ORDERED: FLU VACC TS2019-20(65YR UP)/PF 180 MCG/0.5 ML SYRINGE IM ONE (09:00)
[2019-10-25] MEDS ORDERED: Prevnar 13-Val Conj/PF 0.5 ML SYRINGE IM ONE (09:00)
[2019-10-25] MEDS ORDERED: CALCIUM CARBONATE 400 MG PO SCH (09:00)
[2019-10-25] MEDS: Amlodipine 5 MG TAB PO SCH (09:02)
--- NOTE | 2019-10-25 11:10 | PRG ---
DATE OF SERVICE: 10/25/2019 This is a 50-minute initial hospital visit note, in which 50 minutes were spent in reviewing the imaging record, evaluation, examination of the patient and formulation of plan. Greater than 50% of the time was spent in counseling on Staci Marte. I reviewed the notes of my colleague, Darby Charlton PA-C and agrees with its content. Ms. Marte is a 78-year-old woman with Alzheimer's dementia and presented with urinary tract infection with presentation of headache and apparent neurologic decline with decreased vision in the right side and movement of the right arm and right leg. Head CT demonstrates a left occipital lobe hemorrhage with surrounding edema. CT angiogram is negative for clear vascular abnormality. We are getting an MRI of the brain without and with contrast this morning. On exam, she is drowsy. She does open her eyes and does have a right visual field cut. She moves and following commands of all 4 extremities, but is delayed certainly on the right side when compared to the left. She is not oriented and is minimally verbal. 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 This will be done with an MRI and then in delayed fashion, MRI of the brain without and with contrast in [address] angiogram again is negative for obvious vascular lesion underlying this, but certainly does not rule it out completely. Rehab will be the big vargas for this patient. I would not recommend surgical intervention. She will likely remain in the ICU today, although I would be fine with transfer to the floor. Assuming her MRI is largely stable. Our medical colleagues will be taking over care as the farther the patient gets out from her index bleed. We will arrange appropriate followup as well. She is being treated for urinary tract infection. DIAGNOSIS: Left occipital hemorrhage. Job ID: [id number]
--- NOTE | 2019-10-25 11:31 | MRI ---
EXAM: MRI of the brain without and with contrast HISTORY: Left occipital lobe parenchymal hemorrhage COMPARISON: CT brain 10/24/2019 TECHNIQUE: Multiplanar multisequence MR images were obtained of the brain without and with IV contras t. FINDINGS: There is a 4.0 cm area of parenchymal hemorrhage in the left occipital lobe. A small amount of blood is also seen in the posterior aspect of both lateral ventricles. There are scattered foci of high T2/FLAIR signal in the subcortical and periventricular white matter, likely secondary to small vessel ischemic disease. No restricted diffusion. No abnormal enhancing lesion is seen in the region of hemorrhage. No hydronephrosis. No extra-axial fluid collection. The expected flow voids are present. Corpus callosum, pituitary, and craniocervical junction are within normal limits. The calvarium and overlying soft tissues are unremarkable. The paranasal sinuses and mastoid air cells are well aerated. IMPRESSION: 1. Left occipital lobe parenchymal hemorrhage without underlying lesion. Evaluation is limited second orlin to the blood products in this location. A follow-up MRI in 4-6 weeks is recommended after resolution of the blood. 2. Small amount of intraventricular hemorrhage without evidence of hydrocephalus. This exam was reviewed with Dr. Tubbs who agrees with the findings and impression.
[2019-10-25] MEDS ORDERED: Magnevist 469MG/ML 20 ML VIAL ONE (11:53)
[2019-10-25] MEDS: niCARdipine 25 MG in Sodium Chloride 0.9% 250 ML 240 ML IVPB SCH (12:51)
--- NOTE | 2019-10-25 15:35 | PDOC.HOSPP ---
- Subjective Encounter Date: 10/25/19 Encounter Time: 13:00 Subjective: The patient is more drowsy today. She did get seroquel overnight, also received benadryl this morning at 5 am because she tried to pull out her tube. Per family, a lara catheter was placed overnight because she was getting up every 15 minutes to urinate. She was weaned off nicardipine drip this am at 5, but had to be restarted due to mental status and inability to take oral med - Objective Vital Signs & Weight: Vital Signs (12 hours) Temp Pulse BP 10/25/19 13:00 99.0 F 10/25/19 09:02 72 138/79 10/25/19 08:00 99.2 F Weight Weight 165 lb 9.074 oz Most Recent Monitor Data Heart Rate from ECG 73 NIBP 136/74 NIBP BP-Mean 94 Respiration from ECG 17 SpO2 98 I&O: 10/24/19 10/25/19 10/26/19 06:59 06:59 06:59 Intake Total 714 0 Output Total 1138 138 Balance -424 -138 Result Diagrams: 10/24/19 12:27 10/24/19 12:27 Hospitalist ROS - Review of Systems ROS unobtainable: due to mental status - Medication Medications: Active Medications Generic Name Dose Route Start Last Admin Trade Name Freq PRN Reason Stop Dose Admin Acetaminophen 650 mg 10/24/19 13:29 10/24/19 23:35 Tylenol PO 650 mg Q6H PRN Administration Fever>101/(Mi/Mod/Sev) Pain Amlodipine Besylate 5 mg 10/25/19 09:00 10/25/19 09:02 Norvasc PO 5 mg DAILY SUDHA Administration Diphenhydramine HCl 25 mg 10/24/19 18:34 10/25/19 05:12 Benadryl PO 25 mg Q4H PRN Administration Insomnia/agitation Nicardipine HCl 25 mg/ Sodium 250 mls @ 0 mls/hr 10/24/19 12:00 10/25/19 12: 51 Chloride IVPB 250 mls INF SUDHA Administration Protocol Titrate Ceftriaxone Sodium 1 gm/ 100 mls @ 200 mls/hr 10/24/19 23:00 10/24/19 22:59 Sodium Chloride IVPB 100 mls 2300 SUDHA Administration Metoprolol Succinate 25 mg 10/25/19 09:00 10/25/19 09:02 Toprol Xl PO 25 mg DAILY SUDHA Administration Quetiapine Fumarate 12.5 mg 10/24/19 22:19 10/24/19 23:14 Seroquel PO 12.5 mg HS PRN Administration Agitation - Exam General Appearance: NAD, awake alert Eye: PERRL, anicteric sclera ENT: normocephalic atraumatic, no oropharyngeal lesions Neck: no JVD Heart: RRR, no murmur, no gallops, no rubs Respiratory: CTAB, no wheezes, no rales, no ronchi Gastrointestinal: soft, non-tender, non-distended, normal bowel sounds Extremities: no cyanosis, no clubbing, no edema Skin: normal turgor, no lesions, no rashes Neurological: cranial nerve grossly intact, normal sensation to touch, no focal deficits, no new deficit Neurological - other findings: Right sided neglect. Said three fingers were up when there were four Musculoskeletal: normal tone, normal strength, no muscle wasting Musculoskeletal - other findings: moves all four extremities spontaneously. 5/5 strenght in all four Psychiatric - other findings: oriented to place. Hosp A/P - Plan MRI brain: left occipital lobe parenchymal hemorrhage without lesion This is a 78 year old female with past medical history of Alzheimers who was transferred here for vision changes and headache, found to have intraparenchymal hemorrhage Hypertensive emergency with intraparenchymal hemorrhage and intraventricular hemorrhage - on nicardipine drip - continue amlodipine and metoprolol - SBP goal 140 - MRI brain showing left occipital lobe hemorrhage and intraventricular hemorrhage . F/u MRI recommended in 4-6 weeks. Small Acute encephalopathy secondary to stroke vs UTI - continue IV ceftriaxone for UTI - urine culture showing E coli, awaiting sensitivities - will change seroquel to bid prn - try to avoid benadryl and benzo as anticholinergics can precipitate delirium - speech consult for advancement of diet Hypothyroidism - continue levothyroxine GERD: continue PPI Atrial fibrillation: hold aspirin and eliqius Code status: DNR
[2019-10-25] MEDS: Senokot S 8.6-50 MG TAB PO SCH ×2 (15:42→20:27)
[2019-10-25] MEDS: Ondansetron PF 4 MG/2 ML Vial IVP PRN (16:40)
--- NOTE | 2019-10-25 19:02 | CON ---
DATE OF CONSULTATION: HISTORY OF PRESENT ILLNESS: Staci Marte is a 78-year-old female, who presented with headache and vision changes and was found to have a brain hemorrhage. 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 She has dementia. She has history of atrial fibrillation. FAMILY HISTORY: Negative for lung disease in early age. SOCIAL HISTORY: Noncontributory. She is a nonsmoker and nondrinker. ALLERGIES: SHE REPORTS MACRODANTIN, SULFA, AND AZATHIOPRINE ALLERGIES. REVIEW OF SYSTEMS: Not accurately obtainable. PHYSICAL EXAMINATION: VITAL SIGNS: Blood pressure 140/74, heart rate 73, respiratory rate 17, and oximetry is 98. HEENT: Pupils react. Sclerae are anicteric. NECK: Without lymphadenopathy. LUNGS: Clear. HEART: Regular rhythm. S1 and S2 are normal. ABDOMEN: Soft and nontender. EXTREMITIES: Without clubbing, cyanosis, or edema. IMAGING DATA: Per neurosurgery, brain MRI done today just shows a left occipital hemorrhage without a mass. There is some intraventricular blood, but at this time, no evidence of an obstruction. IMPRESSION: 1. Brain hemorrhage, clinically stable. 2. History of dementia. PLAN: Continue supportive care. She is probably stable to transfer out of the critical care unit. We will sign off on transfer. Job ID: [id number]
[2019-10-25] MEDS: Acetaminophen 325 MG TAB PO PRN (20:27)
[2019-10-25] MEDS: Rosuvastatin 20 MG TAB PO SCH (20:27)
[2019-10-25] MEDS: cefTRIAXone\\ROCEPHIN 1 GM in Sodium Chloride 0.9% 100 ML IVPB SCH (23:42)
[2019-10-25] MEDS: hydrALAZINE 20 MG/ML VIAL SLOW IVP PRN (23:42)
[2019-10-26] MEDS: Ondansetron PF 4 MG/2 ML Vial IVP PRN ×2 (01:31→11:09)
[2019-10-26] MEDS: Acetaminophen 325 MG TAB PO PRN ×3 (02:58→16:53)
[2019-10-26] MEDS: diphenhydrAMINE 25 MG CAP PO PRN (02:58)
[2019-10-26] MEDS: Amlodipine 5 MG TAB PO SCH (08:47)
[2019-10-26] MEDS: Senokot S 8.6-50 MG TAB PO SCH ×3 (08:49→21:12)
--- NOTE | 2019-10-26 09:47 | PRG ---
DATE OF SERVICE: 10/26/2019 Ms. Marte is hospital day #2 after presenting to the emergency department with findings of left occipital lobe intraparenchymal hemorrhage. The patient was resting when I presented to evaluate her this morning; however, she woke easily to verbal stimuli and responded to questions appropriately. She denies any headaches or complaints of pain at this time. She is moving her arms and legs without difficulty. She has excellent strength throughout her upper and lower extremities bilaterally. Sensation to light touch is intact and equal in her extremities. Unfortunately, family was not present in the room early this morning upon rounding; however, I spoke with patient's daughter over the phone later this morning and updated her with regard to the case. Discussed that MRI of the brain findings are consistent with left occipital lobe hemorrhage that is stable. 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 The patient is neurologically stable at this time and may be transferred to the Stroke Unit today. At this time, plan from a neurosurgical standpoint is to follow up with patient in 6 weeks for repeat MRI of the brain with and without contrast. We will arrange for this outpatient visit. Neurosurgery will be transferring care over to the hospitalist team at this time. There is no role for Neurosurgery at this time. Neurosurgery is signing off; however, we will remain available for any questions. Job ID: [id number] [facility]
[2019-10-26] MEDS: hydrALAZINE 20 MG/ML VIAL SLOW IVP PRN ×2 (09:54→11:05)
[2019-10-26] MEDS: Cefdinir 300 MG CAP PO SCH ×2 (09:55→21:14)
--- NOTE | 2019-10-26 15:44 | PDOC.HOSPP ---
- Subjective Encounter Date: 10/26/19 Encounter Time: 15:00 Subjective: The patient is complaining of a headache, but no other complaints. She still has some right sided neglect. Per family, patient was dizzy after being medicated with antihypertensives. They are also requesting removal of lara catheter Per family, patient has had impaired peripheral vision for years. Was diagnosed with autoimmune retinitis, was following with retina specialist but got tired of taking the medication because they made her sick so she stopped. She doesn' t know what autoimmune disorder. Sounds like she was taking an immunosuppresant Patient much more alert , did not receive any prn meds for agitation - Objective Vital Signs & Weight: Vital Signs (12 hours) Temp Pulse Resp BP BP Pulse Ox 10/26/19 15:16 99.5 F 80 20 148/75 H 94 L 10/26/19 10:25 99.4 F 81 16 153/74 H 96 10/26/19 08:47 72 138/79 10/26/19 08:00 99.9 F H 99 10/26/19 04:00 99.0 F Weight Weight 164 lb 14.492 oz Most Recent Monitor Data Heart Rate from ECG 68 NIBP 152/75 NIBP BP-Mean 100 Respiration from ECG 27 SpO2 99 I&O: 10/25/19 10/26/19 10/27/19 06:59 06:59 06:59 Intake Total 714 407 250 Output Total 1138 693 160 Balance -424 -286 90 Result Diagrams: 10/24/19 12:27 10/24/19 12:27 Hospitalist ROS - Review of Systems Constitutional: denies: fever, chills Cardiovascular: denies: chest pain - Medication Medications: Active Medications Generic Name Dose Route Start Last Admin Trade Name Freq PRN Reason Stop Dose Admin Acetaminophen 650 mg 10/24/19 13:29 10/26/19 09:21 Tylenol PO 650 mg Q6H PRN Administration Fever>101/(Mi/Mod/Sev) Pain Amlodipine Besylate 5 mg 10/25/19 09:00 10/26/19 08:47 Norvasc PO 5 mg DAILY SUDHA Administration Cefdinir 300 mg 10/26/19 09:00 10/26/19 09:55 Omnicef PO 300 mg BID SUDHA Administration Diphenhydramine HCl 25 mg 10/24/19 18:34 10/26/19 02:58 Benadryl PO 25 mg Q4H PRN Administration Insomnia/agitation Hydralazine HCl 10 mg 10/24/19 13:35 10/26/19 11:05 Apresoline SLOW IVP 10 mg Q15MIN PRN Administration SBP >140 and/or DBP >90 Nicardipine HCl 25 mg/ Sodium 250 mls @ 0 mls/hr 10/24/19 12:00 10/25/19 12: 51 Chloride IVPB 250 mls INF SUDHA Administration Protocol Titrate Metoprolol Succinate 25 mg 10/25/19 09:00 10/26/19 08:48 Toprol Xl PO 25 mg DAILY SUDHA Administration Ondansetron HCl 4 mg 10/25/19 14:05 10/26/19 11:09 Zofran IVP 4 mg Q8H PRN Administration Nausea/Vomiting Rosuvastatin Calcium 20 mg 10/25/19 21:00 10/25/19 20:27 Crestor PO 20 mg HS SUDHA Administration Senna/Docusate Sodium 2 tab 10/25/19 09:00 10/26/19 09:54 Senokot S PO Not Given BID SUDHA Sodium Chloride 10 ml 10/25/19 21:00 10/26/19 08:49 Flush - Normal Saline IVF 10 ml Q12HR SUDHA Administration Thyroid 90 mg 10/25/19 09:00 10/26/19 08:48 [place] Thyroid PO 90 mg DAILY SUDHA Administration - Exam General Appearance: NAD, awake alert Eye: PERRL, anicteric sclera Eye - other findings: cannot state how many fingers im holding up. Impaired central + vis acuity ENT: normocephalic atraumatic, no oropharyngeal lesions Neck: no JVD Heart: RRR, no murmur, no gallops, no rubs Respiratory: CTAB, no wheezes, no rales, no ronchi Gastrointestinal: soft, non-tender, non-distended, normal bowel sounds Extremities: no cyanosis, no clubbing, no edema Skin: normal turgor, no lesions, no rashes Neurological: cranial nerve grossly intact, normal sensation to touch, no new deficit Neurological - other findings: right sided neglect. Musculoskeletal: normal tone, normal strength, no muscle wasting Psychiatric: normal affect, normal behavior, oriented to person, oriented to place Hosp A/P - Plan MRI brain: left occipital lobe parenchymal hemorrhage without lesion. Small amount of intraventricular hemorrhage without hydrocephalus This is a 78 year old female with past medical history of Alzheimers who was transferred here for vision changes and headache, found to have intraparenchymal hemorrhage Hypertensive emergency with intraparenchymal hemorrhage and intraventricular hemorrhage - continue amlodipine and metoprolol - SBP goal 140. Given dizziness after receiving BP medication, will check orthostatics before increasing further - MRI brain showing left occipital lobe hemorrhage and intraventricular hemorrhage . F/u MRI recommended in 4-6 weeks. S - will order PTOT Vision loss - secondary to stroke however vision appears to be worst today since she cannot see any fingers - will consult opthalmology given her history of retinitis in the past Acute encephalopathy secondary to stroke vs E coli UTI - improved - s/p 2 days IV ceftriaxone, switch to oral cefdinir for four more days - continue seroquel bid prn - avoid benadryl and benzo as anticholinergics can precipitate delirium Dysphagia - speech consulted and diet was advanced Hypothyroidism - continue levothyroxine GERD: continue PPI Atrial fibrillation: hold aspirin and eliqius. Restart when safe with neurosurgery Dispo: optho consult, PT/OT, may need rehab Code status: DNR
--- NOTE | 2019-10-26 19:50 | CT ---
CT Brain WO Con HISTORY: Vision changes, left parietal and occipital lobe intraparenchymal hemorrhage COMPARISON: 08/23/2020 FINDINGS: The acute hematoma in the left posterior parietal-occipital lobe is stable. There is a tiny amount of acute hemorrhage in the ventricles. No midline shift is seen. No new areas of hemorrhage or acute infarctions are identified. The bony calvarium is intact. IMPRESSION: Stable exam.
[2019-10-26] MEDS: Rosuvastatin 20 MG TAB PO SCH (21:14)
[2019-10-27] MEDS: hydrALAZINE 20 MG/ML VIAL SLOW IVP PRN ×3 (01:20→03:41)
--- NOTE | 2019-10-27 01:35 | CON ---
DATE OF CONSULTATION: 10/26/2019 TIME: 1830 hours. REASON FOR CONSULTATION: Loss of vision, both eyes. 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 When on October 24, she had a sudden painless marked decrease of vision varying between hand motions and counting fingers by her family and was admitted, where a CT then MRI showed hemorrhage within the left occipital lobe. About 10 years previously, she was seen by the [facility] for a rare autoimmune retinal disease which required her seeing three subspecialist in three different cities and being on a drug regimen, which she considered to give her considerable side effects and treatment was abandoned by her about five years previously. She had cataract surgery and intraocular lens implantation bilaterally in the distant past. Admission H and P have been reviewed. On examination, visual acuity is hand motions only with each eye. Ino-Pen Intra-ocular pressure was 27 and 23 mmHg for the right eye and 14 mmHg for the left eye. Confrontation visual field was very limited to a small area just left of center about 10 degrees in size from the center. Even this was inconsistently present. Her pupils were equal, about 4 mm, and reactive, without an afferent pupillary defect. Her motility was aligned and full. Anterior segment showed posterior chamber intraocular lenses. Dilated fundus exam showed perhaps some mild diffuse decreased pigment throughout the retina. Her retinal arterioles were somewhat attenuated. The right optic nerve had a cup/disk ratio of about 0.8 with myopic saucerization configuration with 3+ pallor. The left optic nerve had a saucer cup/disk ratio of about 0.3 with fairly normal rim color. Both macular areas showed the diffuse decreased pigment of the remainder of the retina without a foveal reflex and without any identifiable macular area. Her family members present in the room stated that during my absence, she had correctly identified a picture of herself on a smart phone. IMPRESSION: She probably has had a long-standing marked constriction of her visual field down to perhaps the central 10 degrees. 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 PLAN: There is no specific treatment for her eyes and treatment for her more systemic and [employer] difficulties are left to other staff members. Job ID: [id number] [facility]
[2019-10-27] MEDS: Acetaminophen 325 MG TAB PO PRN ×2 (03:42→18:04)
[2019-10-27] MEDS: Senokot S 8.6-50 MG TAB PO SCH ×2 (08:46→20:12)
[2019-10-27] MEDS: Amlodipine 5 MG TAB PO SCH (09:25)
[2019-10-27] MEDS: Cefdinir 300 MG CAP PO SCH ×2 (09:26→20:11)
--- NOTE | 2019-10-27 12:59 | PQF ---
CLINICAL DOCUMENTATION IMPROVEMENT CLARIFICATION FORM: ICD-10 Updated PLEASE DO AN ADDENDUM TO THE PROGRESS NOTE WITH ANY DOCUMENTATION UPDATES OR ADDITIONS AND CARRY THROUGH TO DC SUMMARY. THANK YOU. DATE: ATTN: DR. COSTA Please exercise your independent, professional judgment in responding to the clarification form. Clinical indicators are provided on the bottom of this form for your review Please check appropriate box(s): [ ] Encephalopathy: Type: [X ] Acute [ ] Subacute [ ] Chronic Etiology: [ ] Hypertensive [ ] Metabolic [ ] Toxic [ ] Hepatic with Coma [ ] Hepatic w/o Coma [ ] Hypoxic [ ] Septic [ ] Wernickes [ ] Drug induced: [ ] Unspecified [ ] in the setting of underlying dementia [X ] Other (please specify) from stroke [ ] Transient Alteration of Awareness [ ] Other diagnosis [ ] Unable to determine In addition, please specify: Present on Admission (POA): [X ] Yes [ ] No [ ] Unable to determine For continuity of documentation, please document condition throughout progress notes and discharge summary. Thank You. CLINICAL INDICATORS - SIGNS / SYMPTOMS / LABS / RESULTS AND LOCATION IN EMR PROGRESS NOTE 10/26: "ACUTE ENCEPHALOPATHY" RISKS: STROKE (PROGRESS NOTE 10/26) ECOLI UTI (PROGRESS NOTE 10/26) HYPERTENSIVE EMERGENCY (PROGRESS NOTE 10/26) H/O ALZHEIMER'S DISEASE (PROGRESS NOTE 10/26) TREATMENT: OMNICEF (10/26-PRESENT) NORVASC (10/25-PRESENT) TOPROL XL (10/25-PRESENT) APRESOLINE IV (10/27) SEROQUEL PRN (LAST ADMIN 10/27) IV ROCEPHIN (10/24-10/25) IV CARDENE( 10/24-10/25) SAP Vp Rheumatology [employer] Winform Viewer (This form is maintained as a part of the permanent medical record) 2014 [email or web address]. All Rights Reserved ALICE [email or web address] Office: [phone] [facility]
[2019-10-27 13:41] VITALS: BMI 25.0
--- NOTE | 2019-10-27 14:50 | PRG ---
DATE OF SERVICE: 10/27/2019 I was concerned last night evidently by our medical colleagues that our patient had gone blind. Head CT was done and not surprising. Her head CT was stable with a left occipital hemorrhage. I suspect this was perhaps an inconsistent exam this morning, she is alert and appropriate. She is pleasantly demented and follows commands in all 4 extremities. She looks the best she has the whole time she has been in the hospital. I will sign off and arrange a followup. She needs disposition at this point. Job ID: [id number]
--- NOTE | 2019-10-27 16:33 | PDOC.HOSPP ---
- Subjective Encounter Date: 10/27/19 Encounter Time: 11:00 Subjective: F/u: stroke The patient has blurry vision persistent. Has headache. No new complaints Repeat CT head yesterday shows no expansion of hematoma. Opthalmology evaluated patient, no further recommendations currently - Objective Vital Signs & Weight: Vital Signs (12 hours) Temp Pulse Pulse Pulse Resp BP BP 10/27/19 15:27 98.7 F 80 18 10/27/19 11:43 81 146/63 H 10/27/19 11:19 99.3 F 73 16 10/27/19 10:06 80 150/77 H 10/27/19 09:25 82 138/70 10/27/19 08:43 10/27/19 07:10 98.4 F 82 16 BP BP Pulse Ox 10/27/19 15:27 152/63 H 95 10/27/19 11:43 143/69 H 10/27/19 11:19 155/73 H 94 L 10/27/19 10:06 10/27/19 09:25 10/27/19 08:43 95 10/27/19 07:10 138/70 95 Weight Admit Weight 160 lb Weight 160 lb Most Recent Monitor Data Heart Rate from ECG 68 NIBP 152/75 NIBP BP-Mean 100 Respiration from ECG 27 SpO2 99 I&O: 10/26/19 10/27/19 10/28/19 06:59 06:59 06:59 Intake Total 407 250 Output Total 693 410 Balance -286 -160 Result Diagrams: 10/24/19 12:27 10/24/19 12:27 Hospitalist ROS - Review of Systems Constitutional: denies: fever, chills Eyes: denies: vision change - Medication Medications: Active Medications Generic Name Dose Route Start Last Admin Trade Name Freq PRN Reason Stop Dose Admin Acetaminophen 650 mg 10/24/19 13:29 10/27/19 03:42 Tylenol PO 650 mg Q6H PRN Administration Fever>101/(Mi/Mod/Sev) Pain Amlodipine Besylate 5 mg 10/25/19 09:00 10/27/19 09:25 Norvasc PO 5 mg DAILY SUDHA Administration Cefdinir 300 mg 10/26/19 09:00 10/27/19 09:26 Omnicef PO 300 mg BID SUDHA Administration Diphenhydramine HCl 25 mg 10/24/19 18:34 10/26/19 02:58 Benadryl PO 25 mg Q4H PRN Administration Insomnia/agitation Metoprolol Succinate 25 mg 10/25/19 09:00 10/27/19 08:44 Toprol Xl PO 25 mg DAILY SUDHA Administration Ondansetron HCl 4 mg 10/25/19 14:05 10/26/19 11:09 Zofran IVP 4 mg Q8H PRN Administration Nausea/Vomiting Quetiapine Fumarate 12.5 mg 10/25/19 21:00 10/27/19 03:42 Seroquel PO 12.5 mg BIDPRN PRN Administration Agitation Rosuvastatin Calcium 20 mg 10/25/19 21:00 10/26/19 21:14 Crestor PO 20 mg HS SUDHA Administration Senna/Docusate Sodium 2 tab 10/25/19 09:00 10/27/19 08:46 Senokot S PO Not Given BID SUDHA Sodium Chloride 10 ml 10/25/19 21:00 10/27/19 09:28 Flush - Normal Saline IVF 10 ml Q12HR SUDHA Administration Thyroid 90 mg 10/25/19 09:00 10/27/19 08:44 [place] Thyroid PO 90 mg DAILY SUDHA Administration - Exam General Appearance: NAD, awake alert Eye: PERRL Eye - other findings: can see two fingers in one spot on left visual field. ENT: normocephalic atraumatic, no oropharyngeal lesions Neck: supple, no JVD Heart: RRR, no murmur, no gallops, no rubs Respiratory: CTAB, no wheezes, no rales, no ronchi Gastrointestinal: soft, non-tender, non-distended, normal bowel sounds Extremities: no cyanosis, no clubbing, no edema Skin: normal turgor, no lesions, no rashes Neurological - other findings: right sided neglect Musculoskeletal: normal tone, normal strength, no muscle wasting Psychiatric: normal affect, normal behavior, A&O x 3, oriented to time Hosp A/P - Plan MRI brain: left occipital lobe parenchymal hemorrhage without lesion. Small amount of intraventricular hemorrhage without hydrocephalus CT head 10/27: stable hematoma in left parieto-occipital lobe This is a 78 year old female with past medical history of Alzheimers who was transferred here for vision changes and headache, found to have intraparenchymal hemorrhage Hypertensive emergency with intraparenchymal hemorrhage and intraventricular hemorrhage - continue amlodipine and metoprolol - SBP goal 140-160. Orthostatics negative - MRI brain showing left occipital lobe hemorrhage and intraventricular hemorrhage . F/u MRI recommended in 4-6 weeks. Vision loss - secondary to stroke however vision appears to be worst today since she cannot see any fingers - consulted opthalmology, no further recommendations currently Acute encephalopathy secondary to stroke vs E coli UTI - improved - s/p 2 days IV ceftriaxone, switch to oral cefdinir for three more days - continue seroquel bid prn - avoid benadryl and benzo as anticholinergics can precipitate delirium Decreased urine output - will continue to monitor, if persists, then consider small bolus of fluids Dysphagia - speech consulted and diet was advanced Hypothyroidism - continue levothyroxine GERD: continue PPI Atrial fibrillation: hold aspirin and eliqius permanently Dispo: needs SNF Code status: DNR
[2019-10-27 17:35] LABS: Anion Gap 14 mmol/L (10-20); BUN (Urea Nitrogen) 30 mg/dL (9.8-20.1); Calc. Creatinine Clearance 51 mL/min (70-130); Calcium 9.5 mg/dL (7.8-10.44); Carbon Dioxide 23 mmol/L (23-31); Chloride 102 mmol/L (98-107); Estimated GFR-MDRD 52; Glucose 133 mg/dL (83-110); Potassium 3.7 mmol/L (3.5-5.1); Sodium 135 mmol/L (136-145)
[2019-10-27] MEDS: Rosuvastatin 20 MG TAB PO SCH (20:10)
[2019-10-27] MEDS: diphenhydrAMINE 25 MG CAP PO PRN (20:10)
[2019-10-28] MEDS ORDERED: Prevnar 13-Val Conj/PF 0.5 ML SYRINGE IM ONE (09:00)
[2019-10-28] MEDS: Amlodipine 5 MG TAB PO SCH (09:19)
[2019-10-28] MEDS: Cefdinir 300 MG CAP PO SCH (09:20)
[2019-10-28] MEDS: Senokot S 8.6-50 MG TAB PO SCH (09:21)
[2019-10-28 11:44] LABS: Hemoglobin 11.9 g/dL (12.0-16.0); Mean Corpuscular HGB CONC 32.2 g/dL (32.0-36.0); Mean Corpuscular Hemoglobin 28.7 pg (27.0-31.0); Mean Corpuscular Volume 89.1 fL (78.0-98.0); Mean Platelet Volume 9.7 fL (7.4-10.4); Platelet Count 219 thou/uL (130-400); RBC Distribution Width 17.9 % (11.5-14.5); Red Blood Cell (RBC) Count 4.13 mill/uL (4.20-5.40)
[2019-10-28 12:06] LABS: Anion Gap 12 mmol/L (10-20); BUN (Urea Nitrogen) 24 mg/dL (9.8-20.1); Calc. Creatinine Clearance 51 mL/min (70-130); Calcium 9.3 mg/dL (7.8-10.44); Carbon Dioxide 26 mmol/L (23-31); Chloride 105 mmol/L (98-107); Estimated GFR-MDRD 51; Glucose 117 mg/dL (83-110); Potassium 3.8 mmol/L (3.5-5.1); Sodium 139 mmol/L (136-145)
[2019-10-28] MEDS: Acetaminophen 325 MG TAB PO PRN (12:34)
[2019-10-28] MEDS ORDERED: Amlodipine 5 MG TAB PO SCH (14:30)
[2019-10-28 15:48] VITALS: BP 149/72; TEMP 99.3
== END 2019-10-28 18:18 | disposition home health service (06) | DRG 65 ==
LOC: ERS 10:51 → CCU 13:12 → 2SE 10-26 10:31
PROVIDERS: ADMIT Internal Medicine; ATTEND Internal Medicine
DX: I61.1 Nontraumatic intracerebral hemorrhage in hemisphere, cortical (principal); N39.0 Urinary tract infection, site not specified; I16.1 Hypertensive emergency; G93.49 Other encephalopathy; Z66 Do not resuscitate; H53.8 Other visual disturbances; I48.91 Unspecified atrial fibrillation; E03.9 Hypothyroidism, unspecified; G30.9 Alzheimer's disease, unspecified; F02.80 Dementia in other diseases classified elsewhere, unspecified severity, without behavioral disturbance, psychotic disturbance, mood disturbance, and anxiety; K21.9 Gastro-esophageal reflux disease without esophagitis; I61.5 Nontraumatic intracerebral hemorrhage, intraventricular; B96.20 Unspecified Escherichia coli [E. coli] as the cause of diseases classified elsewhere; H54.7 Unspecified visual loss; M19.90 Unspecified osteoarthritis, unspecified site; I12.9 Hypertensive chronic kidney disease with stage 1 through stage 4 chronic kidney disease, or unspecified chronic kidney disease; R13.10 Dysphagia, unspecified; N18.3 Chronic kidney disease, stage 3 (moderate); Z90.49 Acquired absence of other specified parts of digestive tract; Z79.01 Long term (current) use of anticoagulants; Z90.710 Acquired absence of both cervix and uterus; Z88.2 Allergy status to sulfonamides; Z88.8 Allergy status to other drugs, medicaments and biological substances; I61.0 Nontraumatic intracerebral hemorrhage in hemisphere, subcortical
CPT/HCPCS: 36415; 70450; 70496; 70498; 70553; 71045; 80048; 80053; 81003; 81015; 83690; 84484; 85025; 85027; 87077; 87086; 87186; 90471; 90670; 93005; A4353; A9579; C9132; G0009; J0360; J0696; J2405; J3490; J7050; Q0163; Q9967

== ENCOUNTER 2019-11-01 20:21 | Emergency (ER) | payer MEDICARE ==
[2019-11-01 20:53] LABS: #Eosinphils 0.2 thou/uL (0.0-0.7); #Lymphocytes 1.9 thou/uL (1.20-3.40); #Monocytes 0.6 thou/uL (0.11-0.59); #Neutrophils 3.2 thou/uL (1.40-6.50); %Basophils 0.6 % (0.0-1.0); %Eosinophils 3.8 % (0.0-10.0); %Lymphocytes 32.2 % (21.0-51.0); %Monocytes 9.6 % (0.0-10.0); %Neutrophils 53.8 % (42.0-75.0); Hemoglobin 11.2 g/dL (12.0-16.0); Mean Corpuscular HGB CONC 32.7 g/dL (32.0-36.0); Mean Corpuscular Hemoglobin 29.4 pg (27.0-31.0); Mean Corpuscular Volume 89.8 fL (78.0-98.0); Platelet Count 197 thou/uL (130-400); RBC Distribution Width 17.3 % (11.5-14.5); Red Blood Cell (RBC) Count 3.81 mill/uL (4.20-5.40); White Blood Cell (WBC) Count 5.9 thou/uL (4.8-10.8)
[2019-11-01 21:12] LABS: ALT (SGPT) 19 U/L (8-55); AST (SGOT) 22 U/L (5-34); Albumin 3.7 g/dL (3.4-4.8); Alkaline Phosphatase 51 U/L (40-110); Anion Gap 12 mmol/L (10-20); BUN (Urea Nitrogen) 16 mg/dL (9.8-20.1); Bilirubin, Total 0.4 mg/dL (0.2-1.2); Calc. Creatinine Clearance 0 mL/min (70-130); Calcium 9.3 mg/dL (7.8-10.44); Carbon Dioxide 26 mmol/L (23-31); Chloride 105 mmol/L (98-107); Estimated GFR-MDRD 56; Globulin 3.3 g/dL (2.4-3.5); Glucose 109 mg/dL (83-110); Sodium 139 mmol/L (136-145)
== END 2019-11-01 23:46 ==
LOC: ERS 20:21
DX: F03.90 Unspecified dementia, unspecified severity, without behavioral disturbance, psychotic disturbance, mood disturbance, and anxiety (principal); Z86.73 Personal history of transient ischemic attack (TIA), and cerebral infarction without residual deficits; I48.91 Unspecified atrial fibrillation; E03.9 Hypothyroidism, unspecified; M19.90 Unspecified osteoarthritis, unspecified site; I12.9 Hypertensive chronic kidney disease with stage 1 through stage 4 chronic kidney disease, or unspecified chronic kidney disease; N18.3 Chronic kidney disease, stage 3 (moderate); Z79.899 Other long term (current) drug therapy
CPT/HCPCS: 36415; 80053; 85025; 93005